=== PATIENT | female | born 1970 | race African-American/Black ===

== ENCOUNTER 2022-05-24 12:53 | Emergency (ER) | payer OTHER, SELFPAY ==
--- NOTE | ~2022-05-24 | XR_ITS ---
EXAMINATION: XR knee RT 3V CLINICAL INFORMATION: Reason for Exam pain COMPARISON: None available at the time of this dictation. TECHNIQUE: Frontal lateral oblique views FINDINGS: BONES: No fracture or dislocation is present. JOINTS: Narrowing of joint spaces and developed osteophytes from the edges of articular surfaces suggest degenerative osteoarthritis. SOFT TISSUE: Normal XR/XR knee RT 3V IMPRESSION: Mild tricompartment degenerative osteoarthritis. No significant knee joint effusion.
--- NOTE | 2022-05-24 12:59 | ED_ITS ---
HPI - General Adult General Chief complaint: Extremity Injury, Lower <PATI Brown - Last Filed: 05/24/22 13:01> Stated complaint: knee pain <PATI Brown Last Filed: 05/24/22 13:01> Time Seen by Provider: 05/24/22 13:34 <PATI Brown Last Filed: 05/24/22 13:01> Source: patient <PAIT Griffiths Last Filed: 05/24/22 14:52> Mode of arrival: ambulatory <PATI Griffiths Last Filed: 05/24/22 14:52> Limitations: no limitations <PATI Griffiths Last Filed: 05/24/22 14:52> History of Present Illness HPI narrative: 51 yo female with history of morbid obesity, hypertension, varicose veins of the lower extremities, HIV on HAART who presents to the ER for evaluation of 1-2 months of worsening right-sided knee pain. She also reports bilateral lower extremity swelling since working on her feet more. 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 She has had worsening knee pain since then. She reports the pain is in the medial aspect of the knee, worse with ambulation, worse with range of motion. She has no significant swelling of the knee, no redness or warmth. She states her lower legs have generalized swelling, does not really improve after she goes home and elevates them. She denies any shortness of breath or chest pain. No difficulty breathing <PATI Griffiths - Last Filed: 05/24/22 14:52> MD complaint: Right knee pain <PATI Griffiths Last Filed: 05/24/22 14:52> Onset (ago): month(s) (2) <PATI Griffiths Last Filed: 05/24/22 14:52> Location: lower extremity <PATI Griffiths Last Filed: 05/24/22 14:52> Radiation: distal <PATI Griffiths Last Filed: 05/24/22 14:52> Severity: moderate <APTI Griffiths Last Filed: 05/24/22 14:52> Severity scale (1-10): 7 <PATI Griffiths - Last Filed: 05/24/22 14:52> Quality: aching <PATI Griffiths - Last Filed: 05/24/22 14:52> Pain Consistency: constant <PATI Griffiths - Last Filed: 05/24/22 14:52> Relieving factors: rest <PATI Griffiths - Last Filed: 05/24/22 14:52> Exacerbating factors: movement <PATI Griffiths - Last Filed: 05/24/22 14:52> Associated symptoms: denies other symptoms <PATI Griffiths - Last Filed: 05/24/22 14:52> Treatments prior to arrival: none <PATI Griffiths Last Filed: 05/24/22 14:52> Related Data Home medications: Previous Rx's Medication Instructions Recorded acetaminophen 650 mg 650 mg PO Q8H PRN pain #30 tabs 05/24/22 tablet,extended release (Tylenol 8 Hour) ibuprofen 600 mg tablet 600 mg PO Q8H PRN pain #20 tabs 05/24/22 <PATI Brown - Last Filed: 05/24/22 13:01> Allergies/adverse reactions: Allergies Allergy/AdvReac Type Severity Reaction Status Date / Time azithromycin Allergy Palpitation Verified 05/24/22 13:00 s <PATI Brown - Last Filed: 05/24/22 13:01> Review of Systems Review of Systems: Yes all other systems are reviewed and are negative <PATI Griffiths - Last Filed: 05/24/22 14:52> [facility] Social History Social History: Social History Advance Directives: No Advance Directives Information Provided: Yes <PATI Brown Last Filed: 05/24/22 13:01> Physical Exam ED Vital Signs: Vital Signs - 24 hr 05/24/22 13:01 05/24/22 14:00 Temperature 97.6 F Pulse Rate 66 71 Respiratory Rate 18 18 Blood Pressure 181/102 H 141/83 H Pulse Oximetry 96 99 Oxygen Delivery Method Room Air Room Air BMI result Body Mass Index 51.7 <PATI Brown Last Filed: 05/24/22 13:01> Vital Signs - 24 hr 05/24/22 13:01 05/24/22 14:00 Temperature 97.6 F Pulse Rate 66 71 Respiratory Rate 18 18 Blood Pressure 181/102 H 141/83 H Pulse Oximetry 96 99 Oxygen Delivery Method Room Air Room Air BMI result Body Mass Index 51.7 <PATI Griffiths Last Filed: 05/24/22 14:52> Appearance: Alert. Oriented X3. No acute distress. HEENT: normal inspection CVS: Normal heart rate and rhythm. Pulses normal. Respiratory: No respiratory distress. Skin: Skin warm and dry. Normal skin color. Normal skin turgor. No rashes. Extremities: morbidly obese bilateral LE, tender varicose veins bilaterally. trace nonpitting LE edema bilaterally. right knee with medial joint line tenderness, limited ROM due to pain, no warmth or erythema to the knee. NV intac t distally. Neuro: Oriented X 3. No motor deficit. No sensory deficit. Slow but steady gait <PATI Griffiths Last Filed: 05/24/22 14:52> Course Course Course Narrative: RME performed by Kacie Santo PA-C. Patient is a 51 year old assigned female at presenting to the emergency department with right knee pain. Patient states that she has had this pain for over a month and nothing seems to help. Imaging ordered. Patient placed back in the waiting room pending room availability and results. <PATI Brown - Last Filed: 05/24/22 13:01> Medications Administered Discontinued Medications Generic Name Dose Route Start Last Admin Trade Name Freq PRN Reason Stop Dose Admin Acetaminophen 975 mg 05/24/22 14:15 05/24/22 14:22 Acetaminophen 325 Mg Tablet PO 05/24/22 14:16 975 mg ONCE ONE Administration Ketorolac Tromethamine 30 mg 05/24/22 14:15 05/24/22 14:21 Ketorolac Tromethamine 30 Mg/Ml Vial IM 05/24/22 14:16 30 mg ONCE ONE Administration <PATI Brown - Last Filed: 05/24/22 13:01> Medications Administered Discontinued Medications Generic Name Dose Route Start Last Admin Trade Name Freq PRN Reason Stop Dose Admin Acetaminophen 975 mg 05/24/22 14:15 05/24/22 14:22 Acetaminophen 325 Mg Tablet PO 05/24/22 14:16 975 mg ONCE ONE Administration Ketorolac Tromethamine 30 mg 05/24/22 14:15 05/24/22 14:21 Ketorolac Tromethamine 30 Mg/Ml Vial IM 05/24/22 14:16 30 mg ONCE ONE Administration <PATI Griffiths - Last Filed: 05/24/22 14:52> Medical Decision Making Medical Decision Making MDM Narrative: 51-year-old morbidly obese female presents to the ER for evaluation of right knee pain for the last 1-2 months as well as lower extremity swelling after new job where she is on her feet several hours per day. Right knee has tenderness and limited mobility due to pain. No evidence of infection. X-ray showing tricompartmental osteoarthritis. She does have tender varicose veins on the lower extremities. Her legs are warm & well perfused. Most likely peripheral vascular disease. We discussed the importance of weight loss, lifestyle modifications. She was encouraged follow-up with orthopedics as well as vascular surgery for further evaluation and treatment. Will start her on extra-strength Tylenol and NSAIDs for pain control. Patient was placed in Declan wrap for compression and support. Stable for discharge home. Patient agrees with plan. All questions were answered. <PATI Griffiths - Last Filed: 05/24/22 14:52> Differential Diagnosis Differential Diagnoses: The differential diagnosis associated with the presentation includes <PATI Griffiths - Last Filed: 05/24/22 14:52> Osteoarthritis, knee effusion, meniscus injury, ligament injury, knee sprain, knee strain, no evidence of joint infection, gout, septic joint <PATI Griffiths Last Filed: 05/24/22 14:52> Independent Interpretation I performed an independent interpretation of an: Plain X-Ray <PATI Griffiths Last Filed: 05/24/22 14:52> Interpretation: arthritic changes notes, no fx or dislocation or effusion <PATI Griffiths Last Filed: 05/24/22 14:52> Radiology Impression Discussion of test interpretation with radiology: I have reviewed the radiologist's reading. <PATI Griffiths Last Filed: 05/24/22 14:52> Radiologist Impression: XR/XR knee RT 3V IMPRESSION: Mild tricompartment degenerative osteoarthritis. ? No significant knee joint effusion.? <PATI Griffiths - Last Filed: 05/24/22 14:52> External Record Review External record reviewed: Outpatient record, Prior outpatient labs and Prior outpatient radiology <PATI Griffiths - Last Filed: 05/24/22 14:52> Prescription Management I considered prescription management with: Pain Medication <PATI Griffiths Last Filed: 05/24/22 14:52> Chronic Conditions Patient?s care impacted by: Hypertension and Other (morbid obesity ) <PATI Griffiths - Last Filed: 05/24/22 14:52> Critical Care Time Critical Care Time Critical Care Time: No <PATI Griffiths - Last Filed: 05/24/22 14:52> Discharge Plan Discharge Clinical Impression: Osteoarthritis of knee, Varicose veins of both lower extremities <PATI Brown - Last Filed: 05/24/22 13:01> Patient Disposition: Home, Self-Care <PATI Brown Last Filed: 05/24/22 13:01> Instructions: Osteoarthritis (ED), Venous Insufficiency (DC) <PATI Brown - Last Filed: 05/24/22 13:01> Additional Instructions: Recommend taking the prescribed tylenol and ibuprofen for your pain Rest, ice, and elevate your knee when possible Follow up with Orthopedics and Vascular for further evaluation and treatment - call for an appointment, name and number below XR/XR knee RT 3V IMPRESSION: Mild tricompartment degenerative osteoarthritis. ? No significant knee joint effusion.? <PATI Brown - Last Filed: 05/24/22 13:01> Prescriptions: New ibuprofen 600 mg tablet 600 mg PO Q8H PRN (Reason: pain) Qty: 20 0RF acetaminophen [Tylenol 8 Hour] 650 mg tablet extended release 650 mg PO Q8H PRN (Reason: pain) Qty: 30 0RF <PATI Brown Last Filed: 05/24/22 13:01> Referrals: [facility] Family Medicine [Provider Group] (Call to establish and follow up with a primary care provider.) [facility] Primary CareMaria Dolores [Provider Group] (Call to establish and follow up with a primary care provider.) [facility] Primary CareJanell [Provider Group] (Call to establish and follow up with a primary care provider.) [facility] [place] [facility] [[place] Group] (XR/XR knee RT 3V IMPRESSION: Mild tricompartment degenerative osteoarthritis. No significant knee joint effusion. ) [facility] [place] [facility] [place] Group] (PVD, symptomatic varicose veins) <PATI Brown - Last Filed: 05/24/22 13:01>
[2022-05-24 13:01] VITALS: BP 181/102; PULSE 66; RESP 18; TEMP 36.4; O2SAT 96; BMI 51.7
[2022-05-24 14:00] VITALS: BP 141/83; PULSE 71; RESP 18; O2SAT 99
[2022-05-24] MEDS: Ketorolac Tromethamine 30 MG/ML VIAL IM (14:21)
[2022-05-24] MEDS: Acetaminophen 325 MG TABLET 975 MG PO (14:22)
== END 2022-05-24 14:55 | disposition home or self-care (01) ==
PROVIDERS: Emergency Provider Emergency Medicine
DX: M17.11 Unilateral primary osteoarthritis, right knee (principal); I83.893 Varicose veins of bilateral lower extremities with other complications; M79.661 Pain in right lower leg; I10 Essential (primary) hypertension; B20 Human immunodeficiency virus [HIV] disease; E66.9 Obesity, unspecified; Z68.43 Body mass index [BMI] 50.0-59.9, adult
CPT/HCPCS: 73562; 99283; J1885

== ENCOUNTER 2022-06-11 08:59 | Outpatient (REF) | payer OTHER, SELFPAY | END 2022-06-11 09:00 | disposition home or self-care (01) | LOC: HO.HOSX 08:59 | PROVIDERS: Visit Provider Physician Assistant | DX: Z13.89 Encounter for screening for other disorder (principal) ==

== ENCOUNTER 2022-06-26 11:57 | Outpatient (REF) | payer OTHER, SELFPAY ==
--- NOTE | ~2022-06-26 | XR_ITS ---
EXAMINATION: XR KNEE AP STANDING XR RIGHT KNEE, ONE VIEW (SUNRISE VIEW) CLINICAL INFORMATION: Right knee pain COMPARISON: 05/24/2022 TECHNIQUE: AP bilateral standing view of the knees was obtained. Also, sunrise view of right knee is obtained. FINDINGS: AP STANDING VIEW Large body habitus. There are marginal osteophytes of medial lateral tibiofemoral compartments of both knees and mild narrowing of medial tibiofemoral joint space of each knee. SUNRISE VIEW OF RIGHT KNEE There is mild narrowing of the patellofemoral joint space, medially, with small marginal osteophytes. The patella is well-positioned within the femoral trochlea. No fracture or subluxation. XR/XR knee RT 1V IMPRESSION: * Mild tricompartmental osteoarthritis of the right knee. * Mild osteoarthritis of tibiofemoral compartments of the partially evaluated left knee.
--- NOTE | ~2022-06-26 | XR_ITS ---
EXAMINATION: XR KNEE AP STANDING XR RIGHT KNEE, ONE VIEW (SUNRISE VIEW) CLINICAL INFORMATION: Right knee pain COMPARISON: 05/24/2022 TECHNIQUE: AP bilateral standing view of the knees was obtained. Also, sunrise view of right knee is obtained. FINDINGS: AP STANDING VIEW Large body habitus. There are marginal osteophytes of medial lateral tibiofemoral compartments of both knees and mild narrowing of medial tibiofemoral joint space of each knee. SUNRISE VIEW OF RIGHT KNEE There is mild narrowing of the patellofemoral joint space, medially, with small marginal osteophytes. The patella is well-positioned within the femoral trochlea. No fracture or subluxation. XR/XR knee standing BI IMPRESSION: * Mild tricompartmental osteoarthritis of the right knee. * Mild osteoarthritis of tibiofemoral compartments of the partially evaluated left knee.
== END 2022-06-26 11:58 | disposition home or self-care (01) ==
LOC: HO.HOSX 11:57
PROVIDERS: Visit Provider Physician Assistant
DX: M17.11 Unilateral primary osteoarthritis, right knee (principal); M25.562 Pain in left knee
CPT/HCPCS: 73560; 73565; 99202

== ENCOUNTER 2022-07-21 10:00 | Outpatient (RCR) | payer OTHER, SELFPAY ==
--- NOTE | 2022-07-18 12:06 | MHC.PT.EP ---
[facility] [place] Office [place] Office [place] Office [address] [phone] F: [phone] F: [phone] F: [phone] F: [phone] Physical Therapy Plan of Care Date of Evaluation: Date of Surgery: Diagnosis: R knee OA> Assessment: Pt is a 51 y/o female [employer] referred to skilled PT for eval and treat of R knee OA which results in decreased tolerance for negotiating stairs, walking long distances, standing for duration, performing heavier HH chores secondary to decreased R knee ROM, decreased B knee and hip strength, body habitus, gait abnormality, and pain. Pt is deemed an appropriate candidate to receive skilled PT services to address their physical impairments in order to improve their functional ability. Frequency and Duration: The patient will be seen 2 x / wk x 5 wks. Short Term Goals: Initiate home program. Improve R knee flexion to at least 85 degrees; initial 65 degrees. (L knee is 80 degree AROM/ PROM.). Director Heart Goals: I with home program. Pt will improve LEFI outcome measure by at least 9 points on order to demonstrate improved function. Pt will be able to walk 1 mile with at most a little bit of difficulty; initial: quite a bit of difficulty. Pt will be able to negotiate 1 fl of stairs with at most a little bit of difficulty; initial: quite a bit of difficulty. Improve R knee flexion and ext MMT by at least 1/2 MMT grade. Treatment Plan: Modalities to reduce pain, spasms and effusion. Manual therapy to restore motion and function. Therapeutic exercise to improve strength and flexibility. Neuromuscular re-education for posture and balance. Therapeutic activities to return to functional activities of daily living. Electronically signed by: Denis Grant PT. Please sign and return to therapist. Thank you for your referral.
--- NOTE | 2022-10-03 10:41 | MHC.PT.DC ---
[facility] [place] Office [place] Office [place] Office [address] Marilou Marques [address] [phone] F: [phone] F: [phone] F: [phone] F: [phone] Physical Therapy Discharge Report Diagnosis: R knee OA> Date of Surgery: Date of Evaluation: 07/18/22 Date of Discharge: 10/03/22 Treatments to Date: 2 Cancellations to Date: No Shows to Date: Discharge Status: Patient Elected to Stop Discharge Summary: Pt did not f/u with PT after her 2nd visit despite some early improvements. Electronically signed by: Denis Grant PT. Please sign and return to therapist. Thank you for your referral.
== END 2022-10-03 10:42 | disposition home or self-care (01) ==
LOC: HO.PTCHIC 10:00
PROVIDERS: Visit Provider Physician Assistant
DX: M17.11 Unilateral primary osteoarthritis, right knee (principal)
CPT/HCPCS: 97110; 97161

== ENCOUNTER 2022-08-08 11:37 | Emergency (ER) | payer OTHER, SELFPAY ==
--- NOTE | ~2022-08-08 | XR_ITS ---
EXAMINATION: XR CHEST CLINICAL INFORMATION: Chest pain. COMPARISON: None available. TECHNIQUE: 2 views of the chest were obtained. FINDINGS: The pulmonary veins may be mildly prominent in their nondependent portions. No focal infiltrate, effusion, pneumothorax is seen. The cardiac silhouette is suboptimally evaluated. The mediastinum and diaphragm appear unremarkable. There are mild degenerative changes of the spine. XR/XR chest 2V IMPRESSION: Question mild pulmonary venous hypertension. Otherwise unremarkable study.
--- NOTE | 2022-08-08 11:38 | ECG_ITS ---
Test Reason : cp Blood Pressure : / mmHG Vent. Rate : 068 BPM Atrial Rate : 068 BPM P-R Int : 174 ms QRS Dur : 098 ms QT Int : 392 ms P-R-T Axes : 047 004 020 degrees QTc Int : 416 ms Normal sinus rhythm Minimal voltage criteria for LVH, may be normal variant ( R in aVL ) Borderline ECG No previous ECGs available Referred By: Kacie Santo Electronically Signed By:MELODIE MENDEZ
--- NOTE | 2022-08-08 12:00 | ED_ITS ---
HPI - General Adult General Chief complaint: General Medical Stated complaint: chest pain Time Seen by Provider: 08/08/22 15:18 Source: patient Mode of arrival: ambulatory Limitations: no limitations History of Present Illness HPI narrative: This is a 51-year-old female with a history of hypertension, morbid obesity, arthritis, HIV on Biktarvy who presents to the ER with complaints of chest pain for several weeks to months. Patient reports she has chest pain which she describes as soreness at rest but is worsened when she is moving around. She has seen her primary care doctor and this month had outpatient stress test and coronary angio. She has plans to see a metal window screen assembler and have an echocardiogram in October. Patient reports no associated shortness of breath, vomiting or diaphoresis when she is moving around with this chest pain. However, patient reports yesterday she did develop some nausea and vomiting with associated headache which has now since resolved. Patient today has continued chest soreness and fatigue. She denies any leg swelling or leg pain, fevers, cough. No recent travel or sick contact. Related Data Home Medications Medication Instructions Recorded Confirmed amlodipine 5 mg tablet 5 mg PO DAILY 06/26/22 bictegravir 50 mg-emtricitabine 1 tab PO DAILY 06/26/22 200 mg-tenofovir alafenam 25 mg tablet (Biktarvy) lisinopril 40 mg tablet 40 mg PO DAILY 06/26/22 metoprolol tartrate 50 mg tablet 50 mg PO BID 06/26/22 Previous Rx's Medication Instructions Recorded acetaminophen 650 mg 650 mg PO Q8H PRN pain #30 tabs 05/24/22 tablet,extended release (Tylenol 8 Hour) ibuprofen 600 mg tablet 600 mg PO Q8H PRN pain #20 tabs 05/24/22 celecoxib 200 mg capsule (Celebrex) 200 mg PO BID 30 days #60 caps 06/26/22 ondansetron 4 mg disintegrating 4 mg PO Q6H PRN nausea and 08/08/22 tablet vomiting #20 tabs Allergies Allergy/AdvReac Type Severity Reaction Status Date / Time azithromycin Allergy Palpitation Verified 08/08/22 12:07 s Review of Systems Review of Systems: Yes all other systems are reviewed and are negative Constitutional: Constitutional: Reports no additional constitutional complaints, Denies body ache(s), Denies chills, Denies fever(s), Reports headache(s) and Denies weakness Eyes: Eyes: Reports no additional eye complaints and Denies change in vision ENT: Reports system reviewed and no additional complaints, except as documented, Denies dizziness, Reports headache(s), Denies nasal congestion, Denies nasal discharge and Denies neck pain Cardiovascular: Cardiovascular: Reports no additional cardiovascular comp laints, Reports chest pain, Denies leg edema and Denies dyspnea Respiratory: Respiratory: Reports no additional respiratory complaints, Denies cough and Denies dyspnea Gastrointestinal: Gastrointestinal: Reports no additional gastrointestinal complaints, Denies abdominal pain, Denies diarrhea, Reports nausea and Reports vomiting Genitourinary: Genitourinary: Reports no additional female genitourinary complaints and Denies urinary incontinence Musculoskeletal: Musculoskeletal: Reports no additional musculoskeletal complaints, Denies back pain, Denies arthralgias, Denies joint swelling, Denies neck pain, Denies numbness and Denies tingling Integumentary/Breasts: Skin/Breast: Reports system reviewed and no additional complaints, except as docu and Denies rash Neurologic: Reports system reviewed and no additional complaints, except as documented, Denies dizziness, Reports headache(s), Denies numbness, Denies tingling and Denies weakness PMFSH Past Medical History Attestation statement: The following information was validated with the patient. Source: old records reviewed and nursing notes reviewed Social History Social History Alcohol intake: never Smoked in Last 30 Days: No Use of substances other than those prescribed or required for medical reasons: No Advance Directives: No Advance Directives Information Provided: No Physical Exam ED Vital Signs: Vital Signs - 24 hr 08/08/22 12:04 08/08/22 15:27 Temperature 97.9 F 97.9 F Pulse Rate 65 68 Respiratory Rate 18 16 Blood Pressure 164/80 H 139/72 Pulse Oximetry 99 97 Oxygen Delivery Method Room Air Room Air BMI result Body Mass Index 44.3 Const General: cooperative, healthy appearing, comfortable and no acute distress Orientation/consciousness: patient oriented x3 Limitations: no limitations HENMT Head: Yes normal to inspection Ears: hearing grossly normal bilaterally Eyes General: appearance normal, both eyes and all related structures Pupils: Equal, round and reactive pupils present Neck Neck: Yes normal visual inspection, Yes full ROM, Yes no lymphadenopathy and Yes no meningeal signs Chest Chest palpation & inspection: normal inspection of the chest Resp Effort & Inspection: normal respiratory effort Auscultation: clear to auscultation bilaterally Cardio Rate: regular rate Rhythm: regular rhythm Peripheral pulses: Peripheral pulses 2+ throughout GI Inspection: Yes normal to inspection Palpation (GI): Soft to palpation and nontender General: Yes no CVA tenderness Back/Spine/Pelvis Back: no CVA tenderness Thoracic/Lumbar Spine: thoracic and lumbar spine normal to inspection Skin General skin exam: no rashes or lesions noted Neuro General: patient oriented x3, moves all extremities and no meningeal signs Cranial nerves: Yes Equal, round and reactive pupils present Cognition (Neuro): normal cognition Gait exam (Neuro): Normal gait present Motor exam (neuro): 5/5 motor strength present throughout Sensory Exam: Normal double simultaneous stimulation for sensation Extrem General: Yes normal to inspection, Yes no pedal edema and Yes no calf tenderness Course Course Course Narrative: RME performed by Kacie Santo PA-C. Patient is a 51 year old assigned female at presenting to the emergency department with chest pain. Patient states that the pain comes and goes, mostly present when she takes a deep breath and when she is arguing with her daughters. Patient has had intermittent vomiting since 07/24/2022. Labs and imaging ordered. Patient placed back in the waiting room pending room availability and results. Reevaluation(s) Reevaluation #1: I was unable to get the CTA from [facility]. I was able to get the patient's nuclear medicine stress test which shows perfusion defect in the mid distal anterior septal segments and the distal anterior wall with reversible perfusion defects in the basal to mid anterior in the basal anterior septal ding. Wall motion and thickening are normal. Will this may represent breast attenuation mixed infarct/ischemia of the anterior/basal anterior septal wall cannot be excluded. Normal EF. I reviewed the patient's labs. Patient has a normal troponin and a nonischemic EKG. While her symptoms are exertional it appears that she has had an extensive outpatient workup including stress test and CTA's with plans for her to see C ardiology at [facility] in October. I did discuss this with my attending Dr. Nina. I do not feel that admission is warranted as I do not feel that they would be able to do any additional workup inpatient. It is appropriate the patient would see cardiology for possible cardiac catheterization. I do not feel that referring the patient to our Cardiology team would be additionally helpful as she may need a cardiac catheterization which would have to be done at [facility]. Patient does have follow-up with primary care upcoming and we discussed her talking to her primary care and her metal window screen assembler about seeing them sooner. She should avoid exertional activities which I reviewed with her. Medical Decision Making Medical Decision Making [facility] Narrative: This a 51-year-old female with history of hypertension, HIV on Biktarvy, arthritis, morbid obesity here with complaints of months of intermittent chest pain which is worsened with exertion. Cardiology workup outpatient this month has consisted of a stress test and a CTA which patient does not have the results of as they were done at [facility]. She does have follow-up with Cardiology in October as well as an echocardiogram. She is complaining of intermittent episodes of vomiting which she tells me are unrelated to the chest pain. Patient reports she had episode yesterday of nausea and vomiting with headache which is now resolved. Patient reports today she feels fatigued. On exam patient has no focal abdominal tenderness. She has clear lung sounds. She is complaining of some chest soreness. Her exam is otherwise benign. Will obtain labs, EKG, chest x-ray Will attempt to get records from [facility] Differential Diagnosis Differential Diagnoses: The differential diagnosis associated with the present ation includes ACS, unstable angina, PE(unlikely PE, perc is 1 for age-no hypoxia, tachypnea, tachycardia, clinical findings concerning for DVT. No history of recent travel, recent surgeries, personal or family history of DVT or PE. No estrogen use), dissection (unlikely aortic dissection with gradual intermittent symptoms), gastroenteritis Admission/Observation Consideration of admission/observation: Escalation of care including admission/observation considered see course of care for discussion Lab Data [facility] Lab Attestation statement: I reviewed the patient's lab results. 08/08/22 11:56 08/08/22 11:56 Labs: Lab Results 08/08/22 08/08/22 08/08/22 Range/Units 11:56 11:56 11:56 WBC 5.1 (4.8-10.8) X10*3/uL RBC 4.78 (4.20-5.50) X10*6/uL Hgb 12.9 (12.0-16.0) g/dl Hct 40.4 (37.0-47.0) % MCV 84.5 (80.0-98.0) fL MCH 27.0 (27.0-33.0) pg MCHC 31.9 (31.0-35.0) g/dl RDW 13.2 (11.0-16.0) % Plt Count 233 (160-400) X10*3/uL MPV 9.9 (9.4-12.3) fL Immature Gran % (Auto) 0.2 (0.0-0.4) % Neut % (Auto) 74.9 H (45-73) % Lymph % (Auto) 14.6 L (20-40) % [place] % (Auto) 6.3 (2-11) % Eos % (Auto) 3.0 (0-4) % Baso % (Auto) 1.0 (0-2) % Lymph # (Auto) 0.7 L (1.2-4.9) X10*3/uL [place] # (Auto) 0.3 (0.1-1.2) X10*3/uL Eos # (Auto) 0.2 (0.0-0.4) X10*3/uL Baso # (Auto) 0.1 (0.0-0.2) X10*3/uL Abs Immat Gran (auto) 0.01 (0.00-0.03) X10*3/uL Absolute Neuts (auto) 3.8 (2.0-8.3) x10*3/uL Absolute Nucleated RBC 0.000 (0.0-0.012) X10*3/uL Nucleated RBC % (auto) 0.0 (0.0-0.2) /100WBC Sodium 141 (135-145) mmol/L Potassium 3.8 (3.3-5.1) mmol/L Chloride 109 H (96-108) mmol/L Carbon Dioxide 24 (22-29) mmol/L Anion Gap 12 (12-20) BUN 9 (9-16) mg/dL Creatinine 0.84 (0.5-1.4) mg/dL Estim Creat Clear Calc 115.1 Estimated GFR > 60 Random Glucose 99 (60-115) mg/dL Calcium 9.3 (8.4-10.2) mg/dL Total Bilirubin 0.6 (0.0-1.0) mg/dL AST 16 (5-31) U/L ALT 11 (0-31) U/L Alkaline Phosphatase 101 (39-117) U/L Troponin I High Sens < 2.7 (<3.5-17.0) ng/L B-Natriuretic Peptide (<100) pg/mL Total Protein 7.1 (6.5-8.0) g/dL Albumin 3.8 (3.5-5.0) g/dL COVID-19 (MELIA) (Negative) COVID-19 Clin Com 08/08/22 08/08/22 Range/Units 11:56 16:25 WBC (4.8-10.8) X10*3/uL RBC (4.20-5.50) X10*6/uL Hgb (12.0-16.0) g/dl Hct (37.0-47.0) % MCV (80.0-98.0) fL MCH (27.0-33.0) pg MCHC (31.0-35.0) g/dl RDW (11.0-16.0) % Plt Count (160-400) X10*3/uL MPV (9.4-12.3) fL Immature Gran % (Auto) (0.0-0.4) % Neut % (Auto) (45-73) % Lymph % (Auto) (20-40) % [place] % (Auto) (2-11) % Eos % (Auto) (0-4) % Baso % (Auto) (0-2) % Lymph # (Auto) (1.2-4.9) X10*3/uL [place] # (Auto) (0.1-1.2) X10*3/uL Eos # (Auto) (0.0-0.4) X10*3/uL Baso # (Auto) (0.0-0.2) X10*3/uL Abs Immat Gran (auto) (0.00-0.03) X10*3/uL Absolute Neuts (auto) (2.0-8.3) x10*3/uL Absolute Nucleated RBC (0.0-0.012) X10*3/uL Nucleated RBC % (auto) (0.0-0.2) /100WBC Sodium (135-145) mmol/L Potassium (3.3-5.1) mmol/L Chloride (96-108) mmol/L Carbon Dioxide (22-29) mmol/L Anion Gap (12-20) BUN (9-16) mg/dL Creatinine (0.5-1.4) mg/dL Estim Creat Clear Calc Estimated GFR Random Glucose (60-115) mg/dL Calcium (8.4-10.2) mg/dL Total Bilirubin (0.0-1.0) mg/dL AST (5-31) U/L ALT (0-31) U/L Alkaline Phosphatase (39-117) U/L Troponin I High Sens (<3.5-17.0) ng/L B-Natriuretic Peptide 36 (<100) pg/mL Total Protein (6.5-8.0) g/dL Albumin (3.5-5.0) g/dL COVID-19 (MELIA) Negative (Negative) COVID-19 Clin Com See Note Independent Interpretation I performed an independent interpretation of an: EKG and Plain X-Ray Interpretation: I independently reviewed the chest x-ray and agree with radiologist's report I independently reviewed the EKG which shows normal sinus rhythm with a rate of 68, normal CO, normal QRS, normal QT Radiology Impression Discussion of test interpretation with radiology: I have reviewed the radiologist's reading. Radiologist Impression: [place] [id number] XRay Report Signed Patient: Reema Greene MR#: [id number] : 1970 Acct:[id number] Age/Sex: 51 / F ADM Date: 08/08/22 Loc: .ED Attending Dr: Ordering Physician: Kacie Santo Date of Service: 08/08/22 Procedure(s): XR chest 2V Accession Number(s): [id number] cc: Kacie Santo~ EXAMINATION: XR CHEST CLINICAL INFORMATION: Chest pain. COMPARISON: None available. TECHNIQUE: 2 views of the chest were obtained. FINDINGS: The pulmonary veins may be mildly prominent in their nondependent portions. No focal infiltrate, effusion, pneumothorax is seen. The cardiac silhouette is suboptimally evaluated. The mediastinum and diaphragm appear unremarkable. There are mild degenerative changes of the spine. XR/XR chest 2V IMPRESSION: Question mild pulmonary venous hypertension. Otherwise unremarkable study. External Record Review External record reviewed: Outpatient record (Nuclear medicine stress test) Discharge Plan Discharge Clinical Impression: Chest pain Patient Disposition: Home, Self-Care Instructions: Chest Pain (DC) Additional Instructions: Please limit exertional activity Call your primary care doctor on Thursday and try to get in to see your metal window screen assembler sooner Seek care in the emergency room for any worsening symptoms Prescriptions: New ondansetron 4 mg tablet,disintegrating 4 mg PO Q6H PRN (Reason: nausea and vomiting) Qty: 20 0RF No Action ibuprofen 600 mg tablet 600 mg PO Q8H PRN (Reason: pain) Qty: 20 0RF acetaminophen [Tylenol 8 Hour] 650 mg tablet extended release 650 mg PO Q8H PRN (Reason: pain) Qty: 30 0RF Biktarvy 50-200-25 mg tablet 1 tab PO DAILY amlodipine 5 mg tablet 5 mg PO DAILY metoprolol tartrate 50 mg tablet 50 mg PO BID lisinopril 40 mg tablet 40 mg PO DAILY celecoxib [Celebrex] 200 mg capsule 200 mg PO BID 30 Days Qty: 60 3RF Referrals: Physician,Unknown J [Primary Care Provider] - Interventions: ED Discharge Assessment Last Done: 08/08/22 17:44 Discharge Date/Time: 08/08/22 17:45
[2022-08-08 12:01] LABS: MANUAL DIFF FLAG NO
[2022-08-08 12:04] VITALS: BP 164/80; PULSE 65; RESP 18; TEMP 36.6; O2SAT 99; BMI 44.3
[2022-08-08 12:06] LABS: Basophils Absolute Auto 0.1 X10*3/uL (0.0-0.2); Eosinophils Absolute Auto 0.2 X10*3/uL (0.0-0.4); Hematocrit 40.4 % (37.0-47.0); Hemoglobin 12.9 g/dl (12.0-16.0); Imm Gran Abs Auto 0.01 X10*3/uL (0.00-0.03); Imm Gran Pct Auto 0.2 % (0.0-0.4); Lymphocytes Absolute Auto 0.7 X10*3/uL (1.2-4.9); Lymphocytes Percent Auto 14.6 % (20-40); Mean Corpuscular HGB Conc 31.9 g/dl (31.0-35.0); Mean Corpuscular Volume 84.5 fL (80.0-98.0); Mean Platelet Volume 9.9 fL (9.4-12.3); Monocytes Absolute Auto 0.3 X10*3/uL (0.1-1.2); Monocytes Percent Auto 6.3 % (2-11); Neutrophils Absolute Auto 3.8 x10*3/uL (2.0-8.3); Neutrophils Percent Auto 74.9 % (45-73); Platelet Count 233 X10*3/uL (160-400); Red Blood Count 4.78 X10*6/uL (4.20-5.50); Red Cell Distribution Width 13.2 % (11.0-16.0); White Blood Count 5.1 X10*3/uL (4.8-10.8)
[2022-08-08 12:26] LABS: Alanine Aminotransferase 11 U/L (0-31); Albumin Level 3.8 g/dL (3.5-5.0); Alkaline Phosphatase 101 U/L (39-117); Anion Gap 12 (12-20); Aspartate Amino Transferase 16 U/L (5-31); Bilirubin Total 0.6 mg/dL (0.0-1.0); Blood Urea Nitrogen 9 mg/dL (9-16); Calcium 9.3 mg/dL (8.4-10.2); Carbon Dioxide 24 mmol/L (22-29); Chloride 109 mmol/L (96-108); Creatinine Clr Calc Pharmacy 115.1; Estimated Glomerular Filt Rate > 60; Glucose Random 99 mg/dL (60-115); Potassium 3.8 mmol/L (3.3-5.1); Sodium 141 mmol/L (135-145); Total Protein 7.1 g/dL (6.5-8.0)
[2022-08-08 12:33] LABS: Troponin-I High Sensitivity < 2.7 ng/L (<3.5-17.0)
[2022-08-08 12:36] LABS: B Type Natriuretic Peptide 36 pg/mL (<100)
[2022-08-08 15:27] VITALS: BP 139/72; PULSE 68; RESP 16; TEMP 36.6; O2SAT 97
[2022-08-08 16:46] LABS: COVID-19 Test Negative (Negative); IDNOW Serial# BCCEAD1C
== END 2022-08-08 17:45 | disposition home or self-care (01) ==
PROVIDERS: Nurse Practitioner Family; Physician Assistant Medical; Emergency Provider Emergency Medicine
DX: R07.89 Other chest pain (principal); I10 Essential (primary) hypertension; Z20.822 Contact with and (suspected) exposure to COVID-19; Z20.828 Contact with and (suspected) exposure to other viral communicable diseases; Z79.899 Other long term (current) drug therapy
CPT/HCPCS: 36415; 71046; 80053; 83880; 84484; 85025; 87635; 93005; 99283; 99284

== ENCOUNTER 2024-09-29 12:39 | Emergency (ER) | payer OTHER, SELFPAY ==
--- NOTE | ~2024-09-29 | XR_ITS ---
EXAMINATION: XR CHEST 2 VIEWS HISTORY: CP COMPARISON: Comparison is made with the prior examination dated 08/08/2022. FINDINGS: PA and lateral views of the chest are submitted. The lungs are expanded and clear. There is no pleural effusion, pneumothorax, or pulmonary vascular congestion. The heart is normal in size. The bones are intact. XR/XR chest 2V IMPRESSION: No acute cardiopulmonary abnormality. Electronically signed by: Micah Luna MD 09/29/2024 01:36 PM EDT
[2024-09-29 12:53] VITALS: BP 154/90; PULSE 75; RESP 18; TEMP 36.6; O2SAT 98; BMI 53.2
--- NOTE | 2024-09-29 12:53 | ED.CHESTPAIN ---
HPI - Chest Pain General Chief Complaint: Dyspnea Stated Complaint: Nausea, pain R eye, chest tightness Related Data Home Medications ?Medication ?Instructions ?Recorded ?Confirmed amlodipine 5 mg tablet 5 mg PO DAILY 06/26/22 bictegravir 50 mg-emtricitabine 1 tab PO DAILY 06/26/22 200 mg-tenofovir alafenam 25 mg tablet (Biktarvy) lisinopril 40 mg tablet 40 mg PO DAILY 06/26/22 metoprolol tartrate 50 mg tablet 50 mg PO BID 06/26/22 Previous Rx's ?Medication ?Instructions ?Recorded acetaminophen 650 mg 650 mg PO Q8H PRN pain #30 tabs 05/24/22 tablet,extended release (Tylenol 8 Hour) ibuprofen 600 mg tablet 600 mg PO Q8H PRN pain #20 tabs 05/24/22 celecoxib 200 mg capsule (Celebrex) 200 mg PO BID 30 days #60 caps 06/26/22 ondansetron 4 mg disintegrating 4 mg PO Q6H PRN nausea and 08/08/22 tablet vomiting #20 tabs Allergies Allergy/AdvReac Type Severity Reaction Status Date / Time azithromycin Allergy Palpitation Verified 09/29/24 12:56 s [facility] Social History Social History Alcohol intake: never Advance Directives: No Advance Directives Information Provided: No Do you have a plan to hurt others: No Plan Physical Exam Vital Signs: Vital Signs: Last Vital Signs Temp 97.8 F 09/29/24 12:53 Pulse 75 09/29/24 12:53 Resp 18 09/29/24 12:53 BP 154/90 H 09/29/24 12:53 Pulse Ox 98 09/29/24 12:53 O2 Del Method Room Air 09/29/24 12:53 BMI result Body Mass Index 53.2 Course Course Course Narrative: This is an RME: Additional HPI, ROS, PE not included below will be deferred to primary provider. RME assessment and note performed by: Ginger Casas PA-C This is a 54 year old female, with a hx of HTN, arthritis, HIV+, vertigo, seasonal allergies, who presents to the ER with complaints of headache, shortness of breath, dizziness, nausea, vomiting, blurred vision, chest pressure x 2 days. BP 170s/100 at home. Reports her symptoms started on thursday. Plan: Labs, EKG, CXR, UA, further ER eval needed Reevaluation(s) Reevaluation #1: Patient left without completing treatment. Medical Decision Making Lab Data 09/29/24 13:06 09/29/24 13:06 Labs: Lab Results 09/29/24 Range/Units 13:06 WBC 5.9 (4.8-10.8) X10*3/uL RBC 4.58 (4.20-5.50) X10*6/uL Hgb 12.4 (12.0-16.0) g/dl Hct 38.9 (37.0-47.0) % MCV 84.9 (80.0-98.0) fL MCH 27.1 (27.0-33.0) pg MCHC 31.9 (31.0-35.0) g/dl RDW 13.2 (11.0-16.0) % Plt Count 256 (160-400) X10*3/uL MPV 9.7 (9.4-12.3) fL Immature Gran % (Auto) 0.3 (0.0-0.4) % Neut % (Auto) 76.4 H (45-73) % Lymph % (Auto) 13.0 L (20-40) % [place] % (Auto) 6.9 (2-11) % Eos % (Auto) 2.4 (0-4) % Baso % (Auto) 1.0 (0-2) % Lymph # (Auto) 0.8 L (1.2-4.9) X10*3/uL [place] # (Auto) 0.4 (0.1-1.2) X10*3/uL Eos # (Auto) 0.1 (0.0-0.4) X10*3/uL Baso # (Auto) 0.1 (0.0-0.2) X10*3/uL Abs Immat Gran (auto) 0.02 (0.00-0.03) X10*3/uL Absolute Neuts (auto) 4.5 (2.0-8.3) x10*3/uL Absolute Nucleated RBC 0.000 (0.0-0.012) X10*3/uL Nucleated RBC % (auto) 0.0 (0.0-0.2) /100WBC Sodium 143 (135-145) mmol/L Potassium 4.2 (3.3-5.1) mmol/L Chloride 109 H (96-108) mmol/L Carbon Dioxide 28 (22-29) mmol/L Anion Gap 10 L (12-20) BUN 16 (9-16) mg/dL Creatinine 1.27 (0.5-1.4) mg/dL Estim Creat Clear Calc 82.0 Estimated GFR 44 Random Glucose 98 (60-115) mg/dL Calcium 9.1 (8.4-10.2) mg/dL Magnesium 1.9 (1.6-2.6) mg/dL Total Bilirubin 0.5 (0.0-1.0) mg/dL Direct Bilirubin 0.2 (0.0-0.5) mg/dL AST 27 (5-31) U/L ALT 18 (0-31) U/L Alkaline Phosphatase 107 (39-117) U/L Troponin I High Sens < 2.7 (<3.5-17.0) ng/L B-Natriuretic Peptide 10 (<100) pg/mL Total Protein 6.8 (6.5-8.0) g/dL Albumin 4.0 (3.5-5.0) g/dL Lipase 39 (8-78) U/L Influenza Type A (PCR) NEGATIVE (Negative) Influenza Type B (PCR) NEGATIVE (Negative) RSV RNA Qual (PCR) NEGATIVE (Negative) SARS-CoV-2 RNA (RT-PCR) NEGATIVE (Negative) Discharge Plan Discharge Clinical Impression: Diagnosis unknown Patient Disposition: Left W/O Completing Treatment Prescriptions: No Action ibuprofen 600 mg tablet 600 mg PO Q8H PRN (Reason: pain) Qty: 20 0RF acetaminophen [Tylenol 8 Hour] 650 mg tablet extended release 650 mg PO Q8H PRN (Reason: pain) Qty: 30 0RF ondansetron 4 mg tablet,disintegrating 4 mg PO Q6H PRN (Reason: nausea and vomiting) Qty: 20 0RF Biktarvy 50-200-25 mg tablet 1 tab PO DAILY amlodipine 5 mg tablet 5 mg PO DAILY metoprolol tartrate 50 mg tablet 50 mg PO BID lisinopril 40 mg tablet 40 mg PO DAILY celecoxib [Celebrex] 200 mg capsule 200 mg PO BID 30 Days Qty: 60 3RF Discharge Date/Time: 09/29/24 19:54
--- NOTE | 2024-09-29 12:56 | ECG_ITS ---
Test Reason : cp Blood Pressure : */* mmHG Vent. Rate : 69 BPM Atrial Rate : 69 BPM P-R Int : 164 ms QRS Dur : 108 ms QT Int : 400 ms P-R-T Axes : 51 2 14 degrees QTcB Int : 428 ms Normal sinus rhythm Moderate voltage criteria for LVH, may be normal variant ( R in aVL , Manning product ) Borderline ECG When compared with ECG of 08-Aug-2022 11:42, No significant change was found Referred By: Ginger Casas Electronically Signed By: Ryland Bertrand
[2024-09-29 13:17] LABS: MANUAL DIFF FLAG NO
[2024-09-29 13:18] LABS: Hematocrit 38.9 % (37.0-47.0); Hemoglobin 12.4 g/dl (12.0-16.0); Imm Gran Abs Auto 0.02 X10*3/uL (0.00-0.03); Imm Gran Pct Auto 0.3 % (0.0-0.4); Lymphocytes Absolute Auto 0.8 X10*3/uL (1.2-4.9); Mean Corpuscular HGB Conc 31.9 g/dl (31.0-35.0); Mean Corpuscular Hemoglobin 27.1 pg (27.0-33.0); Mean Corpuscular Volume 84.9 fL (80.0-98.0); NRBC Abs Auto 0.000 X10*3/uL (0.0-0.012); NRBC Pct Auto 0.0 /100WBC (0.0-0.2); Platelet Count 256 X10*3/uL (160-400); Red Blood Count 4.58 X10*6/uL (4.20-5.50); White Blood Count 5.9 X10*3/uL (4.8-10.8)
[2024-09-29 13:37] LABS: Alanine Aminotransferase 18 U/L (0-31); Albumin Level 4.0 g/dL (3.5-5.0); Alkaline Phosphatase 107 U/L (39-117); Anion Gap 10 (12-20); Aspartate Amino Transferase 27 U/L (5-31); Blood Urea Nitrogen 16 mg/dL (9-16); Calcium 9.1 mg/dL (8.4-10.2); Carbon Dioxide 28 mmol/L (22-29); Chloride 109 mmol/L (96-108); Creatinine Clr Calc Pharmacy 82.0; Estimated Glomerular Filt Rate 44; Lipase 39 U/L (8-78); Magnesium 1.9 mg/dL (1.6-2.6); Potassium 4.2 mmol/L (3.3-5.1); Sodium 143 mmol/L (135-145); Total Protein 6.8 g/dL (6.5-8.0)
[2024-09-29 13:40] LABS: B Type Natriuretic Peptide 10 pg/mL (<100)
[2024-09-29 13:46] LABS: Troponin-I High Sensitivity < 2.7 ng/L (<3.5-17.0)
[2024-09-29 14:03] LABS: Resp Syncy Virus RNA Qual PCR NEGATIVE (Negative); SARS COV2 PCR INHOUSE NEGATIVE (Negative)
== END 2024-09-29 19:54 | disposition left against medical advice (07) ==
PROVIDERS: Physician Assistant Medical; Emergency Provider Emergency Medicine
DX: R07.9 Chest pain, unspecified (principal); R11.0 Nausea; H57.11 Ocular pain, right eye; I10 Essential (primary) hypertension; B20 Human immunodeficiency virus [HIV] disease; R06.02 Shortness of breath; R42 Dizziness and giddiness; R11.2 Nausea with vomiting, unspecified; H53.8 Other visual disturbances
CPT/HCPCS: 36415; 71046; 80048; 80076; 83690; 83735; 83880; 84484; 85025; 87637; 93005; 99283

== ENCOUNTER → 2024-09-29 12:56 | Outpatient (BNV) | payer OTHER, SELFPAY | PROVIDERS: Visit Provider Radiology Diagnostic Radiology | DX: R07.9 Chest pain, unspecified (principal) | CPT/HCPCS: 71046 ==

== ENCOUNTER → 2024-09-29 12:56 | Outpatient (BNV) | payer OTHER, SELFPAY | PROVIDERS: Emergency Provider Emergency Medicine; Visit Provider Internal Medicine Cardiovascular Disease | DX: R07.89 Other chest pain (principal) | CPT/HCPCS: 93010 ==

== ENCOUNTER 2024-10-23 08:20 | Emergency (ER) | payer OTHER, SELFPAY ==
--- NOTE | ~2024-10-23 | XR_ITS ---
CLINICAL HISTORY: CP Chest radiograph, 1 view Comparison: CR/SR - XR CHEST 2 VIEWS - 09/29/24 13:33 EDT Findings: The cardiomediastinal silhouette is not enlarged. Pulmonary vascularity is unremarkable. Lung volumes are low. No focal consolidation or effusion. No pneumothorax. Degenerative change of the spine and thoracolumbar levocurvature. IMPRESSION: No acute cardiopulmonary findings. This document has been electronically signed by: Denis Khan DO on 10/23/2024 10:32:04
--- NOTE | ~2024-10-23 | CT_ITS ---
CLINICAL HISTORY: headache CT head without contrast. COMPARISON: None provided. FINDINGS: The visualized paranasal sinuses are clear. The mastoid air cells are clear. No calvarial fracture. No evidence for mass or mass effect. No intracranial hemorrhage or abnormal extra-axial fluid collection. No CT evidence of acute infarct. No evidence of hydrocephalus. The basilar cisterns are patent. Posterior fossa appears unremarkable. IMPRESSION: 1. No acute intracranial findings. This document has been electronically signed by: Jorge Hayes MD on 10/23/2024 13:20:33
--- NOTE | 2024-10-23 08:22 | ED.GENADULT ---
HPI - General Adult General Chief complaint: Headache Stated complaint: HUBER,VOMITING,CP SINCE T-1,EXP TO COVID PER EMS Time Seen by Provider: 10/23/24 08:21 Source: patient and RN notes reviewed Mode of arrival: ambulatory Limitations: no limitations History of Present Illness ED Provider: Ginger Casas PA-C HPI narrative: This is a 54-year-old female, with a past medical history of hypertension, arthritis, HIV positive, vertigo, seasonal allergies, who presents emergency department with concerns of headache, nausea, vomiting. Recent exposure to COVID. Patient reports that yesterday she developed body aches, subjective fevers and chills, and had multiple episodes of nonbloody vomiting. She states that she then developed a headache. Denies any known fevers. No abdominal pain. She does report slight chest ?funniness?. She denies any chest pain, or palpitations. MD complaint: Body aches, headache, nausea Onset (ago): day(s) Relieving factors: none Exacerbating factors: none Associated symptoms: denies other symptoms Treatments prior to arrival: none Related Data Home Medications ?Medication ?Instructions ?Recorded ?Confirmed amlodipine 5 mg tablet 5 mg PO DAILY 06/26/22 bictegravir 50 mg-emtricitabine 1 tab PO DAILY 06/26/22 200 mg-tenofovir alafenam 25 mg tablet (Biktarvy) lisinopril 40 mg tablet 40 mg PO DAILY 06/26/22 metoprolol tartrate 50 mg tablet 50 mg PO BID 06/26/22 Previous Rx's ?Medication ?Instructions ?Recorded acetaminophen 650 mg 650 mg PO Q8H PRN pain #30 tabs 05/24/22 tablet,extended release (Tylenol 8 Hour) ibuprofen 600 mg tablet 600 mg PO Q8H PRN pain #20 tabs 05/24/22 celecoxib 200 mg capsule (Celebrex) 200 mg PO BID 30 days #60 caps 06/26/22 ondansetron 4 mg disintegrating 4 mg PO Q6H PRN nausea and 08/08/22 tablet vomiting #20 tabs Allergies Allergy/AdvReac Type Severity Reaction Status Date / Time azithromycin Allergy Palpitation Verified 10/23/24 08:29 s Review of Systems Review of Systems: Constitutional : No Fever, No Chills ENT/Mouth : No sore throat, No Rhinorrhea Eyes: No Eye Pain, No Swelling, No Redness Cardiovascular :+Chest Pain, No SOB Respiratory : No Cough, No Sputum Gastrointestinal :+ Nausea, + Vomiting, No Diarrhea, No abdominal Pain Genitourinary : No Dysuria, No Hematuria Musculoskeletal : No joint pain, No Myalgias, No Joint Swelling Skin : No Skin Lesions, positive skin rash Neuro : No Weakness, No Numbness, No Headache All other systems reviewed and are negative Yes all other systems are reviewed and are negative Constitutional: Constitutional: Reports as per [facility] Social History Social History Alcohol intake: never Smoked in Last 30 Days: No Use of substances other than those prescribed or required for medical reasons: No Advance Directives: No Advance Directives Information Provided: Yes Physical Exam ED Vital Signs: Vital Signs - 24 hr 10/23/24 08:26 10/23/24 09:18 10/23/24 10:00 Temperature 98.8 F 98.7 F Pulse Rate 83 74 104 H Respiratory Rate 20 16 19 Blood Pressure 153/73 H 150/73 H Pulse Oximetry 96 98 94 Oxygen Delivery Method Room Air Room Air Room Air 10/23/24 12:00 Temperature 98.4 F Pulse Rate 64 Respiratory Rate 20 Blood Pressure 140/75 H Pulse Oximetry 95 Oxygen Delivery Method Room Air BMI result Body Mass Index 51.8 Const General: cooperative, comfortable and no acute distress Orientation/consciousness: patient oriented x3 Limitations: no limitations HENMT Head: Yes normal to inspection, Yes normocephalic and Yes atraumatic Ears: hearing grossly normal bilaterally General nose exam: Normal external nose present Face and sinus: Yes normal facial exam Mouth: Normal oral and palatal mucosa present, oropharynx normal and moist mucous membranes Throat: Yes posterior oropharynx normal Eyes General: appearance normal, both eyes and all related structures Eyelids: Yes eyelids normal Conjunctivae: conjunctivae normal Sclerae: sclerae normal Pupils: Equal, round and reactive pupils present EOM: EOMs intact bilaterally Neck Neck: Yes normal visual inspection, Yes full ROM and Yes no lymphadenopathy Lymphatic: no lymphadenopathy noted Chest Chest palpation & inspection: normal inspection of the chest Resp Effort & Inspection: normal respiratory effort and able to speak in complete sentences Auscultation: clear to auscultation bilaterally, no crackles, no rales, no rhonchi and no wheezes Cardio Rate: regular rate Rhythm: regular rhythm Heart sounds: S1 normal heart sound present and S2 normal heart sound present GI Inspection: Yes normal to inspection Skin General skin exam: no rashes or lesions noted Trauma: no lacerations or abrasions Wounds: no wounds Neuro General: patient oriented x3 and moves all extremities Cranial nerves: Yes CN's II-XII intact bilaterally and Yes Equal, round and reactive pupils present Cognition (Neuro): normal cognition Gait exam (Neuro): Normal gait present Motor exam (neuro): 5/5 motor strength present throughout and Pronator motor function not present Extrem General: Yes normal to inspection Right upper extremity: normal to inspection Left upper extremity: normal to inspection Right lower extremity: normal to inspection Left lower extremity: normal to inspection Medications Administered Discontinued Medications Generic Name Dose Route Start Last Admin Trade Name Freq PRN Reason Stop Dose Admin Lactated Ringer's 1,000 mls @ 999 mls/hr 10/23/24 08:33 10/23/24 10:55 Lr IV 10/23/24 09:33 Infused .Q1H1M ONE Infusion Acetaminophen 1,000 mg in 100 mls @ 400 mls/hr 10/23/24 08:32 10/23/24 09:16 Ofirmev IV 10/23/24 08:46 Infused ONCE ONE Infusion Medical Decision Making Medical Decision Making [facility] Narrative: This is a 54-year-old female, with a past medical history of hypertension, arthritis, HIV positive, vertigo, seasonal allergies, who presents emergency department with concerns of headache, nausea, vomiting. On arrival, vital signs within normal limits, she is speaking full sentences under no acute distress. She is neurologically intact, no focal deficits. Differential diagnoses include COVID, flu, ACS-unlikely. Will obtain labs, EKG, chest x-ray, we will continue to closely monitor. Will also medicate with IV Tylenol IV fluids. Labs returned, she has no leukocytosis, stable H&H, chemistry revealing no significant electrolyte derangement. Patient is feeling better after receiving IV fluids, IV Tylenol, and IV antiemetics. Patient did test positive for COVID which is consistent with her current presentation. Head CT and chest x-ray are unremarkable. EKG nonischemic. Discussed strict return precautions. She understands and agrees with plan. Patient stable for discharge. She is speaking in full sentences under no acute distress. Vital signs within normal limits. Differential Diagnosis Differential Diagnoses: The differential diagnosis associated with the presentation includes See above Admission/Observation Consideration of admission/observation: Escalation of care including admission/observation considered Lab Data [facility] Lab Attestation statement: I reviewed the patient's lab results. See MDM and course 10/23/24 09:00 10/23/24 09:02 Labs: Lab Results 10/23/24 10/23/24 10/23/24 Range/Units 08:39 09:00 09:02 WBC 6.3 (4.8-10.8) X10*3/uL RBC 5.26 (4.20-5.50) X10*6/uL Hgb 14.2 (12.0-16.0) g/dl Hct 44.0 (37.0-47.0) % MCV 83.7 (80.0-98.0) fL MCH 27.0 (27.0-33.0) pg MCHC 32.3 (31.0-35.0) g/dl RDW 13.1 (11.0-16.0) % Plt Count 201 (160-400) X10*3/uL MPV 9.8 (9.4-12.3) fL Immature Gran % (Auto) 0.6 H (0.0-0.4) % Neut % (Auto) 84.8 H (45-73) % Lymph % (Auto) 5.6 L (20-40) % [place] % (Auto) 8.2 (2-11) % Eos % (Auto) 0.0 (0-4) % Baso % (Auto) 0.8 (0-2) % Lymph # (Auto) 0.4 L (1.2-4.9) X10*3/uL [place] # (Auto) 0.5 (0.1-1.2) X10*3/uL Eos # (Auto) 0.0 (0.0-0.4) X10*3/uL Baso # (Auto) 0.1 (0.0-0.2) X10*3/uL Abs Immat Gran (auto) 0.04 H (0.00-0.03) X10*3/uL Absolute Neuts (auto) 5.3 (2.0-8.3) x10*3/uL Absolute Nucleated RBC 0.000 (0.0-0.012) X10*3/uL Nucleated RBC % (auto) 0.0 (0.0-0.2) /100WBC Sodium 140 (135-145) mmol/L Potassium 4.3 (3.3-5.1) mmol/L Chloride 107 (96-108) mmol/L Carbon Dioxide 24 (22-29) mmol/L Anion Gap 13 (12-20) BUN 8 L (9-16) mg/dL Creatinine 0.84 (0.5-1.4) mg/dL Estim Creat Clear Calc 122.0 Estimated GFR > 60 Random Glucose 106 (60-115) mg/dL Calcium 9.0 (8.4-10.2) mg/dL Magnesium 2.0 (1.6-2.6) mg/dL Total Bilirubin 0.3 (0.0-1.0) mg/dL Direct Bilirubin 0.1 (0.0-0.5) mg/dL AST 25 (5-31) U/L ALT 16 (0-31) U/L Alkaline Phosphatase 117 (39-117) U/L Troponin I High Sens < 2.7 (<3.5-17.0) ng/L Total Protein 7.2 (6.5-8.0) g/dL Albumin 4.2 (3.5-5.0) g/dL Lipase 20 (8-78) U/L COVID-19 (MELIA) Positive A (Negative) COVID-19 Clin Com See Note Influenza Type A (PRANAV) Negative (Negative) Influenza Type B (PRANAV) Negative (Negative) Influenza A & B Note See Note Independent Interpretation I performed an independent interpretation of an: EKG Interpretation: EKG normal sinus rhythm at a ventricular rate of 69 beats per minute, NH interval 196, QT QTC 396/424, no STEMI. Radiology Impression Discussion of test interpretation with radiology: I have reviewed the radiologist's reading. Radiologist Impression: FINDINGS: The visualized paranasal sinuses are clear. The mastoid air cells are clear. No calvarial fracture. No evidence for mass or mass effect. No intracranial hemorrhage or abnormal extra-axial fluid collection. No CT evidence of acute infarct. No evidence of hydrocephalus. The basilar cisterns are patent. Posterior fossa appears unremarkable. IMPRESSION: 1. No acute intracranial findings. This document has been electronically signed by: Jorge Hayes MD on 10/23/2024 13:20:33 Dictated By: Jorge Hayes MD Findings: The cardiomediastinal silhouette is not enlarged. Pulmonary vascularity is unremarkable. Lung volumes are low. No focal consolidation or effusion. No pneumothorax. Degenerative change of the spine and thoracolumbar levocurvature. IMPRESSION: No acute cardiopulmonary findings. This document has been electronically signed by: Denis Khan DO on 10/23/2024 10:32:04 Dictated By: Denis Khan MD Independent Historian Clinical information obtained from an independent historian. History obtained from or confirmed by: EMS Discharge Plan Discharge Clinical Impression: COVID-19 Patient Disposition: Home, Self-Care Instructions: How To Wash Your Hands (ED), Droplet Precautions (ED), COVID-19 (Coronavirus Disease 2019) (ED), COVID-19 and Chronic Health Conditions (ED), COVID-19: Slow the Coronavirus Spread (ED), Face Coverings (Masks) and COVID-19 (ED), How to Recover from COVID-19 at Home (ED) Additional Instructions: You were seen in the emergency department and you were found to have COVID-19. This is a virus, it is very important that you continue to drink plenty of fluids get plenty of rest. Drink plenty of fluids and get plenty of rest. Your chest xray did not show any evidence of pneumonia. Your blood work was normal. Your CT of your head did not show any abnormal findings. Take Tylenol and Motrin as needed for symptoms. You received IV fluids and Tylenol. Your dose of Tylenol was given at 830, your next dose is due at 02:30PM. Take Tylenol 1000 mg every 8 hours, and motrin 600mg every 6 hours. If any new or worsening symptoms occur including but not limited to chest pain or shortness of breath, please return for re-evaluation. COVID-19 stands for coronavirus disease 2019. It is caused by a virus called SARS-CoV-2. The virus first appeared in late 2018 and quickly spread around the world. Many people only have mild cold symptoms. Some people have digestive problems, like nausea or diarrhea. There have also been some reports of rashes or other skin symptoms. For most people, symptoms get better within a few days to weeks.? Some people with COVID-19 continue to have some symptoms for weeks or months.? What should I do if I have symptoms or test positive?If you have a fever, cough, cold symptoms, or other symptoms of COVID-19, get tested. You can use the flowchart to figure out when to test and what to do based on the results If you?test positive: ? Self-isolate for at least 5 days, even if you feel well. Self-isolation means staying apart from other people, even the people you live with. The 5 days should start the day?after?you first noticed symptoms or got a positive test result. If you have a weak immune system or if you still have a fever, you might need to self-isolate for longer than 5 days. ?After self-isolating for 5 days, wear a mask around all other people for at least 5 more days. Some people use antigen tests to decide how long to keep wearing the mask. If you do this, you can stop wearing a mask once you test negative on 2 antigen tests done at least 2 days apart. ?If your symptoms are severe, or if you are at risk for severe illness,?call?your doctor or nurse. They can tell you if you need to be seen. Depending on your situation, they might suggest treatment. Prescriptions: No Action ibuprofen 600 mg tablet 600 mg PO Q8H PRN (Reason: pain) Qty: 20 0RF acetaminophen [Tylenol 8 Hour] 650 mg tablet extended release 650 mg PO Q8H PRN (Reason: pain) Qty: 30 0RF ondansetron 4 mg tablet,disintegrating 4 mg PO Q6H PRN (Reason: nausea and vomiting) Qty: 20 0RF Biktarvy 50-200-25 mg tablet 1 tab PO DAILY amlodipine 5 mg tablet 5 mg PO DAILY metoprolol tartrate 50 mg tablet 50 mg PO BID lisinopril 40 mg tablet 40 mg PO DAILY celecoxib [Celebrex] 200 mg capsule 200 mg PO BID 30 Days Qty: 60 3RF Stand Alone Forms: Work/School Release Interventions: ED Discharge Assessment Last Done: 10/23/24 14:39 Discharge Date/Time: 10/23/24 14:40 Print Language: Bangladeshi
[2024-10-23 08:26] VITALS: BP 180/90; PULSE 83; RESP 20; TEMP 37.1; O2SAT 96; BMI 51.8
--- NOTE | 2024-10-23 08:32 | ECG_ITS ---
Test Reason : chest tightness Blood Pressure : */* mmHG Vent. Rate : 69 BPM Atrial Rate : 69 BPM P-R Int : 196 ms QRS Dur : 102 ms QT Int : 396 ms P-R-T Axes : 53 12 25 degrees QTcB Int : 424 ms Normal sinus rhythm Minimal voltage criteria for LVH, may be normal variant ( R in aVL ) Borderline ECG When compared with ECG of 29-Sep-2024 13:05, No significant change was found Referred By: Ginger Casas Electronically Signed By: SANTOS BROWN MD
[2024-10-23 09:13] LABS: MANUAL DIFF FLAG NO
[2024-10-23] MEDS: Lactated Ringers 1,000 ML 999 ML IV (09:17)
[2024-10-23 09:18] VITALS: BP 153/73; PULSE 74; RESP 16; O2SAT 98
[2024-10-23 09:29] LABS: Hematocrit 44.0 % (37.0-47.0); Hemoglobin 14.2 g/dl (12.0-16.0); Imm Gran Abs Auto 0.04 X10*3/uL (0.00-0.03); Imm Gran Pct Auto 0.6 % (0.0-0.4); Lymphocytes Absolute Auto 0.4 X10*3/uL (1.2-4.9); Mean Corpuscular HGB Conc 32.3 g/dl (31.0-35.0); Mean Corpuscular Hemoglobin 27.0 pg (27.0-33.0); Mean Corpuscular Volume 83.7 fL (80.0-98.0); NRBC Abs Auto 0.000 X10*3/uL (0.0-0.012); NRBC Pct Auto 0.0 /100WBC (0.0-0.2); Red Blood Count 5.26 X10*6/uL (4.20-5.50); White Blood Count 6.3 X10*3/uL (4.8-10.8)
[2024-10-23 09:40] LABS: Anion Gap 13 (12-20); Blood Urea Nitrogen 8 mg/dL (9-16); Calcium 9.0 mg/dL (8.4-10.2); Carbon Dioxide 24 mmol/L (22-29); Chloride 107 mmol/L (96-108); Creatinine Clr Calc Pharmacy 122.0; Estimated Glomerular Filt Rate > 60; Potassium 4.3 mmol/L (3.3-5.1); Sodium 140 mmol/L (135-145)
[2024-10-23 09:44] LABS: Alanine Aminotransferase 16 U/L (0-31); Albumin Level 4.2 g/dL (3.5-5.0); Alkaline Phosphatase 117 U/L (39-117); Aspartate Amino Transferase 25 U/L (5-31); Lipase 20 U/L (8-78); Magnesium 2.0 mg/dL (1.6-2.6); Total Protein 7.2 g/dL (6.5-8.0)
[2024-10-23 09:46] LABS: Platelet Count 201 X10*3/uL (160-400)
[2024-10-23 09:48] LABS: IDNOW Serial# 55D5AD1C; Influenza B2 Negative (Negative)
[2024-10-23 09:49] LABS: COVID-19 Test Positive (Negative); IDNOW Serial# 58CA691E
--- OUTSIDE RECORDS SUMMARY | 2024-10-23 09:49 | XMS_ITS ---
Author Name [facility] Organization Unknown Care Team Organization Name Specialty Phone Email Start Date End Da te [facility] 06/23/20222023 [facility] 12/24/2021
[2024-10-23 10:00] VITALS: BP 150/73; PULSE 104; RESP 19; TEMP 37.1; O2SAT 94
[2024-10-23 10:08] LABS: Troponin-I High Sensitivity < 2.7 ng/L (<3.5-17.0)
[2024-10-23 12:00] VITALS: BP 140/75; PULSE 64; RESP 20; TEMP 36.9; O2SAT 95
[2024-10-23 14:00] VITALS: BP 137/75; PULSE 66; RESP 20; TEMP 36.9; O2SAT 95
[2024-10-23 14:39] VITALS: BP 137/75; PULSE 66; RESP 20; TEMP 36.9; O2SAT 95
== END 2024-10-23 14:40 | disposition home or self-care (01) ==
PROVIDERS: Physician Assistant Medical; Emergency Provider Emergency Medicine
DX: U07.1 COVID-19 (principal); R51.9 Headache, unspecified; R07.89 Other chest pain; R11.2 Nausea with vomiting, unspecified; M79.10 Myalgia, unspecified site; Z79.899 Other long term (current) drug therapy
CPT/HCPCS: 36415; 70450; 71045; 80048; 80076; 83690; 83735; 84484; 85025; 87502; 87635; 93005; 96361; 96365; 99284; 99285; J0131; J7120

== ENCOUNTER → 2024-10-23 08:32 | Outpatient (BNV) | payer OTHER, SELFPAY | PROVIDERS: Emergency Provider Emergency Medicine; Visit Provider Radiology Diagnostic Radiology | DX: R51.9 Headache, unspecified (principal); R07.9 Chest pain, unspecified | CPT/HCPCS: 70450; 71045 ==

== ENCOUNTER → 2024-10-23 08:32 | Outpatient (BNV) | payer OTHER, SELFPAY | PROVIDERS: Emergency Provider Emergency Medicine; Visit Provider Internal Medicine Cardiovascular Disease | DX: R07.89 Other chest pain (principal) | CPT/HCPCS: 93010 ==